=== PATIENT | female | born 1955 | race Caucasian/White ===

== ENCOUNTER 2024-08-01 13:22 | Emergency (ER) | payer MEDICARE ==
[2024-08-01 13:56] VITALS: TEMP 98
--- NOTE | 2024-08-01 14:28 | ED ---
General Adult HPI - General Chief complaint: Shortness of Breath Stated complaint: SOB Time Seen by Provider: 08/01/24 14:00 Source: patient, RN notes reviewed, old records reviewed Mode of arrival: wheelchair Limitations: no limitations - History of Present Illness Initial comments: Is a 69-year-old female who presents to the emergency department complaining of difficulty breathing. Patient states that started this morning. Patient states she is a heavy smoker and has been for years. Patient states she does have an inhaler at home but it was not working. Patient states she has had a little bit more of a cough and no sputum production. Patient denies any chest pain. Patient denies any pain anywhere. Patient denies any fever or chills. Patient states she only feels short of breath. Patient denies any leg swelling or calf tenderness. - Related Data Home Medications Medication Instructions Recorded Confirmed Aspirin EC [Ecotrin] 162 mg PO DAILY 11/11/13 01/18/15 Atenolol [Tenormin] 25 mg PO DAILY 11/11/13 01/18/15 Diltiazem Cd [Cardizem Cd] 120 mg PO DAILY 11/11/13 01/18/15 Hydrocodone/Acetaminophen [Custer 1 each PO Q4HR PRN 11/11/13 01/18/15 5-325] Lisinopril [Zestril] 40 mg PO DAILY 11/11/13 01/18/15 Previous Rx's Medication Instructions Recorded Amoxicillin 1,000 mg PO Q8H #42 capsule 01/18/15 Azithromycin [Zithromax Z-pack (6 250 mg PO DIRECTED #6 tab 01/18/15 tabs)] Allergies Allergy/AdvReac Type Severity Reaction Status Date / Time codeine Allergy Unknown Verified 01/18/15 02:26 egg Allergy Unknown Verified 01/18/15 02:26 Review of Systems ROS Statement: Those systems with pertinent positive or pertinent negative responses have been documented in the HPI. ROS Other: All systems not noted in ROS Statement are negative. Past Medical History Past Medical History: Asthma, Coronary Artery Disease (CAD) History of Any Multi-Drug Resistant Organisms: None Reported Past Surgical History: Section, Cholecystectomy, Tonsillectomy Additional Past Surgical History / Comment(s): ovary removed, right hernia Past Psychological History: No Psychological Hx Reported Past Alcohol Use History: Rare Past Drug Use History: None Reported General Exam - General Exam Comments Initial Comments: GENERAL: Patient is well-developed and well-nourished. Patient is nontoxic and well- hydrated and is in mild distress. ENT: Neck is soft and supple. No significant lymphadenopathy is noted. Oropharynx is clear. Moist mucous membranes. Neck has full range of motion without eliciting any pain. EYES: The sclera were anicteric and conjunctiva were pink and moist. Extraocular movements were intact and pupils were equal round and reactive to light. Eyelids were unremarkable. PULMONARY: Patient has significantly decreased breath sounds bilaterally CARDIOVASCULAR: There is a regular rate and rhythm without any murmurs gallops or rubs. ABDOMEN: Soft and nontender with normal bowel sounds. No palpable organomegaly was noted. There is no palpable pulsatile mass. SKIN: Skin is clear with no lesions or rashes and otherwise unremarkable. NEUROLOGIC: Patient is alert and oriented x3. Cranial nerves II through XII are grossly intact. Motor and sensory are also intact. Normal speech, volume and content. Symmetrical smile. MUSCULOSKELETAL: Normal extremities with adequate strength and full range of motion. No lower extremity swelling or edema. No calf tenderness. LYMPHATICS: No significant lymphadenopathy is noted PSYCHIATRIC: Normal psychiatric evaluation. Limitations: no limitations Course Vital Signs 08/01/24 08/01/24 08/01/24 13:54 14:45 15:00 Temperature 98 F Pulse Rate 88 101 H Respiratory 24 16 12 Rate Blood Pressure 139/88 198/108 170/91 O2 Sat by Pulse 90 L 93 L Oximetry 08/01/24 08/01/24 08/01/24 15:19 15:30 15:45 Temperature Pulse Rate 96 93 96 Respiratory 16 16 14 Rate Blood Pressure 148/82 130/80 119/81 O2 Sat by Pulse 2 L 99 98 Oximetry 08/01/24 15:52 Temperature Pulse Rate 97 Respiratory 16 Rate Blood Pressure 127/81 O2 Sat by Pulse 92 L Oximetry Medical Decision Making - Medical Decision Making EKG is interpreted by myself. EKG shows a sinus rhythm at 94 bpm HI 165 QRS is 84 QT interval 338 QTc is 390. Patient EKG shows occasional PVC Was pt. sent in by a medical professional or institution (, PA, SUPERVISING [employer], urgent care, hospital, or jail...) When possible be specific @ -No Did you speak to anyone other than the patient for history (EMS, parent, family, police, friend...)? What history was obtained from this source @ -No Did you review nursing and triage notes (agree or disagree)? Why? @ -I reviewed and agree with nursing and triage notes Were old charts reviewed (outside hosp., previous admission, EMS record, old EKG, old radiological studies, urgent care reports/EKG's, jail records)? Report findings @ -No old charts were reviewed Differential Diagnosis? @ -Differential Dyspnea: Coronary syndrome, arrhythmia, tamponade, asthma, COPD, pulmonary embolism, pneumonia, pneumothorax, pulmonary effusion, anaphylaxis, diabetic ketoacidosis, flailed chest, pulmonary contusion, diaphragmatic rupture, anemia, neuromuscular, this is not meant to be an all-inclusive list. EKG interpreted by me (3pts min.). @ -As above X-rays interpreted by me (1pt min.). @ -None done CT interpreted by me (1pt min.). @ -CT of the brain showed a large right-sided intraparenchymal bleed in the parietal region. CT angiogram shows no acute abnormality and no aneurysm. There is about a 50% occlusion of the right carotid artery U/S interpreted by me (1pt. min.). @ -None done What testing was considered but not performed or refused? (CT, X-rays, U/S, labs)? Why? @ -None What meds were considered but not given or refused? Why? @ -None Did you discuss the management of the patient with other professionals (professionals i.e. DrJohn, PA, [employer], lab, RT, psych nurse, social studies teacher, semiconductor wafer inspector, teacher, chief talent officer, block and case maker)? Give summary @ -I spoke with Dr. Andrews and he wanted the patient transferred to [facility]. Spoke with At [facility] Dr. Major and he agreed to accept the transfer the patient Was critical care preformed (if so, how long)? @ -35 minutes Were there social determinants of health that impacted care today? How? (Homelessness, low income, unemployed, alcoholism, drug addiction, transportation, low edu. Level, literacy, decrease access to med. care, fdc, rehab)? @ -No Was there de-escalation of care discussed even if they declined (Discuss DNR or withdrawal of care, Hospice)? DNR status @ -No What co-morbidities impacted this encounter? (DM, HTN, Smoking, COPD, CAD, Cancer, CVA, ARF, Chemo, Hep., AIDS, mental health diagnosis, sleep apnea, morbid obesity)? @ -None Was patient admitted / discharged? Hospital course, mention meds given and route, prescriptions, significant lab abnormalities, going to OR and other pertinent info. @ -Patient sees twice in the emergency department she was initially given 1 mg of Ativan and then that was followed up with [facility]. Patient was drowsy after the Ativan but arousable and was able to answer all questions. Undiagnosed new problem with uncertain prognosis? @ -No Drug Therapy requiring intensive monitoring for toxicity (Heparin, Nitro, Insulin, Cardizem)? @ -No Were any procedures done? @ -No Diagnosis/symptom? @ -Intraparenchymal hemorrhage Acute, or Chronic, or Acute on Chronic? @ -Acute Uncomplicated (without systemic symptoms) or Complicated (systemic symptoms)? @ -Complicate Side effects of treatment? @ -No Exacerbation, Progression, or Severe Exacerbation? @ -No Poses a threat to life or bodily function? How? (Chest pain, USA, OR, pneumonia, PE, COPD, DKA, ARF, appy, cholecystitis, CVA, Diverticulitis, Homicidal, Suicidal, threat to staff... and all critical care pts) @ -Yes this could lead to an further bleeding and Diagnosis/symptom? @ -Seizure Acute, or Chronic, or Acute on Chronic? @ -Acute Uncomplicated (without systemic symptoms) or Complicated (systemic symptoms)? @ -Complicated Side effects of treatment? @ -None Exacerbation, Progression, or Severe Exacerbation] @ -No Poses a threat to life or bodily function? @ -No - Lab Data Result diagrams: 08/01/24 14:51 08/01/24 14:51 Lab Results 08/01/24 08/01/24 08/01/24 Range/Units 14:51 14:51 14:51 WBC 10.37 H (4.50-10.00) 10*3/uL RBC 4.47 (4.10-5.20) 10*6/uL Hgb 13.6 (12.0-15.0) g/dL Hct 40.4 (37.2-46.3) % MCV 90.4 (80.0-97.0) fL MCH 30.4 (27.0-32.0) pg MCHC 33.7 (32.0-37.0) g/dL Plt Count 354 (140-440) 10*3/uL MPV 8.3 L (9.5-12.2) fL Immature Gran % (Auto) 0.5 % Neutrophils % 87.1 % Lymphocytes % 7.3 % Monocytes % 4.7 % Eosinophils % 0.0 % Basophils % 0.4 % Immature Gran # 0.05 H (0.00-0.04) 10*3/uL Neutrophils # 9.03 H (1.80-7.70) 10*3/uL Lymphocytes # 0.76 L (0.90-5.00) 10*3/uL Monocytes # 0.49 (0.20-1.00) 10*3/uL Eosinophils # 0.00 L (0.04-0.35) 10*3/uL Basophils # 0.04 (0.00-0.10) 10*3/uL PT (10.0-12.5) sec INR (<1.2) APTT (22.0-30.0) sec Sodium 135 L (137-145) mmol/L Potassium 4.0 (3.5-5.1) mmol/L Chloride 97 L (98-107) mmol/L Carbon Dioxide 30 (22-30) mmol/L Anion Gap 8 mmol/L BUN 23 H (7-17) mg/dL Creatinine 0.58 (0.52-1.04) mg/dL Est GFR (CKD-EPI)AfAm >90 (>60 ml/min/1.73 sqM) Est GFR (CKD-EPI)NonAf >90 (>60 ml/min/1.73 sqM) Glucose 111 H (74-99) mg/dL POC Glucose (mg/dL) (70-110) mg/dL POC Glu Electrical Experimental Mechanic ID Plasma Lactic Acid Dank 1.1 (0.7-2.0) mmol/L Calcium 8.9 (8.4-10.2) mg/dL Magnesium 1.7 (1.6-2.3) mg/dL Total Bilirubin 0.5 (0.2-1.3) mg/dL AST 29 (14-36) U/L ALT 28 (4-34) U/L Alkaline Phosphatase 53 (38-126) U/L Troponin I (0.000-0.034) ng/mL Total Protein 7.0 (6.3-8.2) g/dL Albumin 4.0 (3.5-5.0) g/dL 08/01/24 08/01/24 08/01/24 Range/Units 14:51 14:51 15:09 WBC (4.50-10.00) 10*3/uL RBC (4.10-5.20) 10*6/uL Hgb (12.0-15.0) g/dL Hct (37.2-46.3) % MCV (80.0-97.0) fL MCH (27.0-32.0) pg MCHC (32.0-37.0) g/dL Plt Count (140-440) 10*3/uL MPV (9.5-12.2) fL Immature Gran % (Auto) % Neutrophils % % Lymphocytes % % Monocytes % % Eosinophils % % Basophils % % Immature Gran # (0.00-0.04) 10*3/uL Neutrophils # (1.80-7.70) 10*3/uL Lymphocytes # (0.90-5.00) 10*3/uL Monocytes # (0.20-1.00) 10*3/uL Eosinophils # (0.04-0.35) 10*3/uL Basophils # (0.00-0.10) 10*3/uL PT 10.6 (10.0-12.5) sec INR 1.0 (<1.2) APTT 21.2 L (22.0-30.0) sec Sodium (137-145) mmol/L Potassium (3.5-5.1) mmol/L Chloride (98-107) mmol/L Carbon Dioxide (22-30) mmol/L Anion Gap mmol/L BUN (7-17) mg/dL Creatinine (0.52-1.04) mg/dL Est GFR (CKD-EPI)AfAm (>60 ml/min/1.73 sqM) Est GFR (CKD-EPI)NonAf (>60 ml/min/1.73 sqM) Glucose (74-99) mg/dL POC Glucose (mg/dL) 114 H (70-110) mg/dL POC Glu Electrical Experimental Mechanic ID Devin Braden Plasma Lactic Acid Dank (0.7-2.0) mmol/L Calcium (8.4-10.2) mg/dL Magnesium (1.6-2.3) mg/dL Total Bilirubin (0.2-1.3) mg/dL AST (14-36) U/L ALT (4-34) U/L Alkaline Phosphatase (38-126) U/L Troponin I 0.024 (0.000-0.034) ng/mL Total Protein (6.3-8.2) g/dL Albumin (3.5-5.0) g/dL Critical Care Time Critical Care Time: Yes Total Critical Care Time: 35 Disposition Clinical Impression: Seizure, Cerebral parenchymal hemorrhage Disposition: OTHER INSTITUTION NOT DEFINED Referrals: Nonstaff,Physician [Primary Care Provider] - 1-2 days - Out of Hospital Transfer - Req. Specs Out of Hospital Transfer - Requested Specifics: Other Emergency Center ([facility])
[2024-08-01 15:09] LABS: Basophils # (A) 0.04 10*3/uL (0.00-0.10); Basophils % (A) 0.4 %; HCT 40.4 % (37.2-46.3); HGB 13.6 g/dL (12.0-15.0); Lymphocytes # (A) 0.76 10*3/uL (0.90-5.00); Lymphocytes % (A) 7.3 %; MCH 30.4 pg (27.0-32.0); MCHC 33.7 g/dL (32.0-37.0); MCV 90.4 fL (80.0-97.0); Mean Platelet Volume 8.3 fL (9.5-12.2); Monocytes # (A) 0.49 10*3/uL (0.20-1.00); Monocytes % (A) 4.7 %; Neutrophils # (A) 9.03 10*3/uL (1.80-7.70); Neutrophils % (A) 87.1 %; Platelet Count 354 10*3/uL (140-440); RBC 4.47 10*6/uL (4.10-5.20); RDW 12.1 % (11.5-14.5); WBC 10.37 10*3/uL (4.50-10.00)
[2024-08-01] MEDS: LORazepam 1 MG/0.5 ML VIAL IV STA (15:10)
[2024-08-01 15:11] LABS: Glucose,Whole Blood 114 mg/dL (70-110)
[2024-08-01] MEDS: cefTRIAXone IN SWFI 1,000 MG/10 ML SYRINGE IVP STA (15:13)
[2024-08-01] MEDS: ALBUTEROL NEBULIZED 2.5 MG/3 ML INHALATION STA (15:14)
[2024-08-01] MEDS: methylPREDNISolone SOD SUCCI 125 MG/2 ML VIAL IV STA (15:14)
[2024-08-01] MEDS: IPRATROPIUM 0.5 MG/2.5 ML NEBU INHALATION STA (15:15)
[2024-08-01] MEDS: levETIRAcetam IV 500 MG/5 ML VIAL IVP STA (15:18)
--- NOTE | 2024-08-01 15:22 | CT ---
Head CT without contrast HISTORY: CVA. COMPARISON: None. TECHNIQUE: Multiple axial images are obtained from skull base to the vertex without the use of IV con trast material. FINDINGS: There is a 3.7 cm acute parenchymal hemorrhage in the right temporoparietal region with mild edema re sulting in slight shift of midline structures to the left. Ventricles, basal cisterns and sulci over convexities are within normal limits in size. The posterior fossa, brainstem, fourth ventricle and cerebellopontine angles appear normal. The intraorbital contents appear normal symmetric. Visualized paranasal sinuses and mastoid air cells are well aerated. IMPRESSION: Large acute parenchymal hemorrhage in the right temporoparietal region. Emergency room physician Dr. Lucero was immediately notified of this finding at the time of interpretat ion on 08/01/2024 at 3:20 PM [facility], Workstation: [facility], 08/01/2024 3:20 PM
[2024-08-01 15:25] LABS: Prothrombin Time 10.6 sec (10.0-12.5)
--- NOTE | 2024-08-01 15:30 | CT ---
EXAMINATION TYPE: CT angio head neck DATE OF EXAM: 08/01/2024 COMPARISON: None CLINICAL INDICATION: Female, 69 years old with history of Neuro deficit, acute, stroke suspected; [facility] , TECHNIQUE: CTA scan of the head and neck is performed , patient injected with mL of , axial images a re obtained, coronal and sagittal reformatted images are reviewed. 3D reconstructed images are create d on an independent workstation and reviewed. CT DLP: mGycm CT CTDI: mGy Automated exposure control for dose reduction was used. NASCET criteria was used in interpretation of this exam? FINDINGS: The brachiocephalic origins are widely patent and no significant stenosis. There is moderate calcification of the proximal right internal carotid artery resulting in less than 50% stenosis. There is no significant stenosis of the left common or internal carotid artery within t he neck. There is no stenosis of the vertebral arteries. Intracranially, there is no stenosis, segmental occlusion, sizable aneurysm sac or vascular malformat ion. IMPRESSION:. 1. Mild to moderate less than 50% stenosis of the proximal right internal carotid artery. No other ev idence of occlusive disease, aneurysm or vascular malformation in the neck or intracranially. 2. Acute intraparenchymal hemorrhage in the right temporoparietal region, see CT head of the same aung e. NASCET criteria was used in interpretation of this exam? [facility], Workstation: [facility] 08/01/2024 3:28 PM
[2024-08-01 15:31] LABS: Partial Thromboplastin Time 21.2 sec (22.0-30.0)
[2024-08-01] MEDS: CLEVIDIPINE BUTYRATE 25 MG in EMPTY BAG 1 BAG IV SCH (15:49)
[2024-08-01 15:54] VITALS: BP 127/81; PULSE 97; RESP 16
--- NOTE | 2024-08-01 15:55 | XR ---
EXAMINATION TYPE: XR chest 1V DATE OF EXAM: 08/01/2024 3:34 PM COMPARISON: Chest radiographs from 01/18/2015. CLINICAL INDICATION: Female, 69 years old with history of difficulty breathing; [facility] TECHNIQUE: XR chest 1V Frontal view of the chest. FINDINGS: Lungs/Pleura: There is no evidence of pleural effusion, focal consolidation, or pneumothorax. Pulmonary vascularity: Unremarkable. Heart/mediastinum: Cardiomediastinal silhouette is unremarkable. Musculoskeletal: No acute osseous pathology. Other findings: None IMPRESSION: No acute cardiopulmonary disease/process. [facility], , 08/01/2024 3:53 PM
[2024-08-01 16:07] LABS: ALT 28 U/L (4-34); African American GFR (CKD) >90 (>60 ml/min/1.73 sqM); Anion Gap 8 mmol/L; Blood Urea Nitrogen 23 mg/dL (7-17); Calcium 8.9 mg/dL (8.4-10.2); Carbon Dioxide 30 mmol/L (22-30); Chloride 97 mmol/L (98-107); Glucose 111 mg/dL (74-99); Non-African American GFR(CKD) >90 (>60 ml/min/1.73 sqM); Sodium 135 mmol/L (137-145); Total Bilirubin 0.5 mg/dL (0.2-1.3)
[2024-08-01 16:09] LABS: AST 29 U/L (14-36); Alkaline Phosphatase 53 U/L (38-126); Magnesium 1.7 mg/dL (1.6-2.3)
== END 2024-08-01 15:52 | disposition other institution (70) ==
LOC: EC 13:22
DX: I61.3 Nontraumatic intracerebral hemorrhage in brain stem (principal); Z88.5 Allergy status to narcotic agent; Z91.012 Allergy to eggs
CPT/HCPCS: 36415; 93005; 80053; 83605; 83735; 84484; 85025; 85610; 85730; 71045; 70496; 70450; 70498; 99291; 96374; 96375 ×2; J2060; J1953; C9248; Q9967

== ENCOUNTER 2024-09-12 19:13 | Emergency (ER) | payer MEDICARE ==
--- NOTE | 2024-09-12 20:19 | ED ---
Recheck HPI - General Chief Complaint: Recheck/Abnormal Lab/Rx Stated Complaint: Abn BP Time Seen by Provider: 09/12/24 19:30 Source: patient, RN notes reviewed Mode of arrival: wheelchair Limitations: physical limitation - History of Present Illness Initial Comments: This is a 69-year-old female with history including CAD, asthma and CVA (2 weeks ago) presenting for low blood pressure starting earlier today. Family [facility] patient is usually hypertensive, stating blood pressure was normal throughout most of the day until just prior to ER arrival. [facility] patient is more confused than usual as well. [facility] patient has ongoing left-sided deficits but denies any recent new paresthesia or hemiplegia. [facility] patient was discharged following CVA on 09/04/2024. Denies fever, chills, cough, chest pain, dyspnea, abdominal pain, N/V/D, dysuria. - Related Data Home Medications Medication Instructions Recorded Confirmed Aspirin EC [Ecotrin] 162 mg PO DAILY 11/11/13 01/18/15 Atenolol [Tenormin] 25 mg PO DAILY 11/11/13 01/18/15 Diltiazem Cd [Cardizem Cd] 120 mg PO DAILY 11/11/13 01/18/15 Hydrocodone/Acetaminophen [[place] 1 each PO Q4HR PRN 11/11/13 01/18/15 5-325] Lisinopril [Zestril] 40 mg PO DAILY 11/11/13 01/18/15 Previous Rx's Medication Instructions Recorded Amoxicillin 1,000 mg PO Q8H #42 capsule 01/18/15 Azithromycin [Zithromax Z-pack (6 250 mg PO DIRECTED #6 tab 01/18/15 tabs)] Allergies Allergy/AdvReac Type Severity Reaction Status Date / Time codeine Allergy Unknown Verified 09/12/24 20:01 egg Allergy Unknown Verified 09/12/24 20:01 Review of Systems ROS Statement: Those systems with pertinent positive or pertinent negative responses have been documented in the HPI. ROS Other: All systems not noted in ROS Statement are negative. Past Medical History Past Medical History: Asthma, Coronary Artery Disease (CAD) History of Any Multi-Drug Resistant Organisms: None Reported Past Surgical History: Section, Cholecystectomy, Tonsillectomy Additional Past Surgical History / Comment(s): ovary removed, right hernia Past Psychological History: No Psychological Hx Reported Past Alcohol Use History: Rare Past Drug Use History: None Reported General Exam Limitations: physical limitation General appearance: alert, in no apparent distress Head exam: Present: atraumatic, normocephalic, normal inspection Eye exam: Present: normal appearance, PERRL, EOMI. Absent: scleral icterus, conjunctival injection, periorbital swelling ENT exam: Present: normal exam, mucous membranes dry Neck exam: Present: normal inspection. Absent: tenderness, meningismus, lymphadenopathy Respiratory exam: Present: decreased breath sounds. Absent: respiratory distress, wheezes, rales, rhonchi, stridor, accessory muscle use, prolonged expiratory Cardiovascular Exam: Present: regular rate, normal rhythm, normal heart sounds. Absent: systolic murmur, diastolic murmur, rubs, gallop, clicks GI/Abdominal exam: Present: soft, normal bowel sounds. Absent: distended, tenderness, guarding, rebound, rigid Extremities exam: Present: normal inspection, full ROM, normal capillary refill. Absent: tenderness, pedal edema, joint swelling, calf tenderness Back exam: Present: normal inspection Neurological exam: Present: alert, oriented X3, CN II-XII intact Psychiatric exam: Present: normal affect, normal mood Skin exam: Present: warm, dry, intact, normal color. Absent: rash Course Vital Signs 09/12/24 09/13/24 09/13/24 19:57 00:01 01:53 Temperature 97.4 F L 98.3 F Pulse Rate 80 80 85 Respiratory 18 16 Rate Blood Pressure 95/65 101/73 121/86 O2 Sat by Pulse 96 96 97 Oximetry Medical Decision Making - Medical Decision Making Was pt. sent in by a medical professional or institution (, PA, ELECTRIC TRUCKER, urgent care, hospital, or senior living...) When possible be specific @ -[No] Did you speak to anyone other than the patient for history (EMS, parent, family, police, friend...)? What history was obtained from this source @ -[No] Did you review nursing and triage notes (agree or disagree)? Why? @ -[I reviewed and agree with nursing and triage notes] Were old charts reviewed (outside hosp., previous admission, EMS record, old EKG, old radiological studies, urgent care reports/EKG's, senior living records)? Report findings @ -[No old charts were reviewed] Differential Diagnosis (chest pain, altered mental status, abdominal pain women, abdominal pain men, vaginal bleeding, weakness, fever, dyspnea, syncope, headache, dizziness, GI bleed, back pain, seizure, CVA, palpatations, mental health, musculoskeletal)? @ -Differential Dizziness: Benign paroxysmal positional Vertigo, Meniere's disease, otitis media, acoustic neuroma, vertebrobasilar insufficiency, cerebellar stroke, encephalitis, hypovolemic, arrhythmia, coronary artery syndrome, anemia, this is not meant to be an all-inclusive list EKG interpreted by me (3pts min.). @ -Sinus rhythm without ST deviation when possible T wave inversion in leads III and aVF. Ventricular rate 75 bpm, SUSIE 185 ms, QRS 84 ms, QTc 388 ms. X-rays interpreted by me (1pt min.). @ -[None done] CT interpreted by me (1pt min.). @ -[None done] U/S interpreted by me (1pt. min.). @ -[None done] What testing was considered but not performed or refused? (CT, X-rays, U/S, labs)? Why? @ -[None] What meds were considered but not given or refused? Why? @ -[None] Did you discuss the management of the patient with other professionals (professionals i.e. , PA, ELECTRIC TRUCKER, lab, RT, psych nurse, social worker clinical, connection worker, teacher, production officer, case management director)? Give summary @ -[No] Was smoking cessation discussed for >3mins.? @ -[No] Was critical care preformed (if so, how long)? @ -[No] Were there social determinants of health that impacted care today? How? (Homelessness, low income, unemployed, alcoholism, drug addiction, transportation, low edu. Level, literacy, decrease access to med. care, snf, rehab)? @ -[No] Was there de-escalation of care discussed even if they declined (Discuss DNR or withdrawal of care, Hospice)? DNR status @ -[No] What co-morbidities impacted this encounter? (DM, HTN, Smoking, COPD, CAD, Cancer, CVA, ARF, Chemo, Hep., AIDS, mental health diagnosis, sleep apnea, morbid obesity)? @ -[None] Was patient admitted / discharged? Hospital course, mention meds given and route, prescriptions, significant lab abnormalities, going to OR and other pertinent info. @ -[hospital course] Undiagnosed new problem with uncertain prognosis? @ -[No] Drug Therapy requiring intensive monitoring for toxicity (Heparin, Nitro, Insulin, Cardizem)? @ -[No] Were any procedures done? @ -[No] Diagnosis/symptom? @ -[default] Acute, or Chronic, or Acute on Chronic? @ -Acute Uncomplicated (without systemic symptoms) or Complicated (systemic symptoms)? @ -Complicated Side effects of treatment? @ -[No] Exacerbation, Progression, or Severe Exacerbation? @ -[No] Poses a threat to life or bodily function? How? (Chest pain, [place], [place], pneumonia, PE, COPD, DKA, ARF, appy, cholecystitis, CVA, Diverticulitis, Homicidal, Suicidal, threat to staff... and all critical care pts) @ -[No] - Lab Data Result diagrams: 09/12/24 21:04 09/12/24 21:04 Lab Results 09/12/24 09/12/24 09/12/24 Range/Units 21:04 21:04 21:04 WBC 6.31 (4.50-10.00) 10*3/uL RBC 4.58 (4.10-5.20) 10*6/uL Hgb 14.2 (12.0-15.0) g/dL Hct 42.4 (37.2-46.3) % MCV 92.6 (80.0-97.0) fL MCH 31.0 (27.0-32.0) pg MCHC 33.5 (32.0-37.0) g/dL Plt Count 259 (140-440) 10*3/uL MPV 8.8 L (9.5-12.2) fL Immature Gran % (Auto) 0.6 % Neutrophils % 76.9 % Lymphocytes % 14.3 % Monocytes % 6.0 % Eosinophils % 1.7 % Basophils % 0.5 % Immature Gran # 0.04 (0.00-0.04) 10*3/uL Neutrophils # 4.85 (1.80-7.70) 10*3/uL Lymphocytes # 0.90 (0.90-5.00) 10*3/uL Monocytes # 0.38 (0.20-1.00) 10*3/uL Eosinophils # 0.11 (0.04-0.35) 10*3/uL Basophils # 0.03 (0.00-0.10) 10*3/uL PT (10.0-12.5) sec INR (<1.2) APTT (22.0-30.0) sec Sodium 138 (137-145) mmol/L Potassium 4.3 (3.5-5.1) mmol/L Chloride 102 (98-107) mmol/L Carbon Dioxide 27 (22-30) mmol/L Anion Gap 9 mmol/L BUN 33 H (7-17) mg/dL Creatinine 0.93 (0.52-1.04) mg/dL Est GFR (CKD-EPI)AfAm 73 (>60 ml/min/1.73 sqM) Est GFR (CKD-EPI)NonAf 63 (>60 ml/min/1.73 sqM) Glucose 102 H (74-99) mg/dL Plasma Lactic Acid Dank (0.7-2.0) mmol/L Calcium 10.5 H (8.4-10.2) mg/dL Magnesium 1.7 (1.6-2.3) mg/dL Total Bilirubin 0.5 (0.2-1.3) mg/dL AST 30 (14-36) U/L ALT 30 (4-34) U/L Alkaline Phosphatase 70 (38-126) U/L Troponin I (0.000-0.034) ng/mL Total Protein 6.9 (6.3-8.2) g/dL Albumin 4.6 (3.5-5.0) g/dL Urine Color Colorless Urine Appearance Clear (Clear) Urine pH 5.5 (5.0-8.0) Ur Specific [place] 1.014 (1.001-1.035) Urine Protein Negative (Negative) Urine Glucose (UA) Negative (Negative) Urine Ketones Negative (Negative) Urine Blood Negative (Negative) Urine Nitrite Negative (Negative) Urine Bilirubin Negative (Negative) Urine Urobilinogen <2.0 (<2.0) mg/dL Ur Leukocyte Esterase Small H (Negative) Urine RBC 1 (0-5) /hpf Urine WBC 7 H (0-5) /hpf Ur Squamous Epith Cells <1 (0-4) /hpf Urine Mucus Rare H (None) /hpf 09/12/24 09/12/24 09/12/24 Range/Units 21:04 21:04 21:06 WBC (4.50-10.00) 10*3/uL RBC (4.10-5.20) 10*6/uL Hgb (12.0-15.0) g/dL Hct (37.2-46.3) % MCV (80.0-97.0) fL MCH (27.0-32.0) pg MCHC (32.0-37.0) g/dL Plt Count (140-440) 10*3/uL MPV (9.5-12.2) fL Immature Gran % (Auto) % Neutrophils % % Lymphocytes % % Monocytes % % Eosinophils % % Basophils % % Immature Gran # (0.00-0.04) 10*3/uL Neutrophils # (1.80-7.70) 10*3/uL Lymphocytes # (0.90-5.00) 10*3/uL Monocytes # (0.20-1.00) 10*3/uL Eosinophils # (0.04-0.35) 10*3/uL Basophils # (0.00-0.10) 10*3/uL PT 10.1 (10.0-12.5) sec INR 0.9 (<1.2) APTT 21.5 L (22.0-30.0) sec Sodium (137-145) mmol/L Potassium (3.5-5.1) mmol/L Chloride (98-107) mmol/L Carbon Dioxide (22-30) mmol/L Anion Gap mmol/L BUN (7-17) mg/dL Creatinine (0.52-1.04) mg/dL Est GFR (CKD-EPI)AfAm (>60 ml/min/1.73 sqM) Est GFR (CKD-EPI)NonAf (>60 ml/min/1.73 sqM) Glucose (74-99) mg/dL Plasma Lactic Acid Dank 1.2 (0.7-2.0) mmol/L Calcium (8.4-10.2) mg/dL Magnesium (1.6-2.3) mg/dL Total Bilirubin (0.2-1.3) mg/dL AST (14-36) U/L ALT (4-34) U/L Alkaline Phosphatase (38-126) U/L Troponin I <0.012 (0.000-0.034) ng/mL Total Protein (6.3-8.2) g/dL Albumin (3.5-5.0) g/dL Urine Color Urine Appearance (Clear) Urine pH (5.0-8.0) Ur Specific [place] (1.001-1.035) Urine Protein (Negative) Urine Glucose (UA) (Negative) Urine Ketones (Negative) Urine Blood (Negative) Urine Nitrite (Negative) Urine Bilirubin (Negative) Urine Urobilinogen (<2.0) mg/dL Ur Leukocyte Esterase (Negative) Urine RBC (0-5) /hpf Urine WBC (0-5) /hpf Ur Squamous Epith Cells (0-4) /hpf Urine Mucus (None) /hpf Disposition Clinical Impression: Dehydration Condition: Fair Instructions (If sedation given, give patient instructions): Dehydration (ED) Additional Instructions: Increase intake of Gatorade/Pedialyte. Follow-up with primary care regarding abnormal finding within chest cavity. Return to ER if experiencing ongoing low blood pressure, dizziness, chest pain, dyspnea, fever, chills Is patient prescribed a controlled substance at d/c from ED?: No Referrals: Nonstaff,Physician [Primary Care Provider] - 1-2 days Flaquita Feliciano [STAFF PHYSICIAN] - 1-2 days Time of Disposition: 02:09
[2024-09-12 21:16] LABS: Basophils # (A) 0.03 10*3/uL (0.00-0.10); Basophils % (A) 0.5 %; Eosinophils # (A) 0.11 10*3/uL (0.04-0.35); Eosinophils % (A) 1.7 %; HCT 42.4 % (37.2-46.3); HGB 14.2 g/dL (12.0-15.0); Lymphocytes % (A) 14.3 %; MCHC 33.5 g/dL (32.0-37.0); MCV 92.6 fL (80.0-97.0); Mean Platelet Volume 8.8 fL (9.5-12.2); Monocytes # (A) 0.38 10*3/uL (0.20-1.00); Neutrophils # (A) 4.85 10*3/uL (1.80-7.70); Neutrophils % (A) 76.9 %; Platelet Count 259 10*3/uL (140-440); RBC 4.58 10*6/uL (4.10-5.20); RDW 13.6 % (11.5-14.5); WBC 6.31 10*3/uL (4.50-10.00)
--- NOTE | 2024-09-12 21:17 | XR ---
EXAMINATION TYPE: XR chest 2V DATE OF EXAM: 09/12/2024 9:04 PM CLINICAL INDICATION:Female, 69 years old with history of Chest Pain; [facility] COMPARISON: Chest radiographs from 08/01/2024, 01/18/2015. TECHNIQUE: XR chest 2V Frontal view of the chest. FINDINGS: Along the posterior aspect of the diaphragm there is a focal protruding radiodense focus which was no t seen on the 2015 x-ray in reference. Additionally along the anterior left heart border there is marisa e pleural thickening with possible calcifications seen. Finding may represent loculated small pleural fluid. The cardiac silhouette is otherwise within normal limits. There are some atelectatic changes in the right lower lung zone. No pneumothorax. No acute osseous abnormality. IMPRESSION: 1. Protruding focal radiodense focus along the posterior aspect of the diaphragm may relate to a Evelina dalek hernia however this was not present on the 2014 study in reference. This should be further tori acterize with a CT chest to rule out any other process such as a neoplasm. 2. Pleural thickening/small amount of loculated fluid is suggested in the anterior lower left lung zo ne. [facility], , 09/12/2024 9:15 PM
[2024-09-12 21:31] LABS: ALT 30 U/L (4-34); AST 30 U/L (14-36); African American GFR (CKD) 73 (>60 ml/min/1.73 sqM); Albumin 4.6 g/dL (3.5-5.0); Alkaline Phosphatase 70 U/L (38-126); Anion Gap 9 mmol/L; Appearance,Urine Clear (Clear); Bilirubin,Urine Negative (Negative); Blood Urea Nitrogen 33 mg/dL (7-17); Blood,Urine Negative (Negative); Calcium 10.5 mg/dL (8.4-10.2); Carbon Dioxide 27 mmol/L (22-30); Chloride 102 mmol/L (98-107); Color,Urine Colorless; Glucose 102 mg/dL (74-99); Glucose,Urine (UA) Negative (Negative); Ketones,Urine Negative (Negative); Leukocyte Esterase,Urine Small (Negative); Magnesium 1.7 mg/dL (1.6-2.3); Mucus,Urine Rare /hpf; Nitrite,Urine Negative (Negative); Non-African American GFR(CKD) 63 (>60 ml/min/1.73 sqM); PH, Urine 5.5 (5.0-8.0); Potassium 4.3 mmol/L (3.5-5.1); Protein,Urine Negative (Negative); RBC,Urine 1 /hpf (0-5); Sodium 138 mmol/L (137-145); Specific Gravity,Urine 1.014 (1.001-1.035); Squamous Epithelial Cell,Urine <1 /hpf (0-4); Total Bilirubin 0.5 mg/dL (0.2-1.3); Total Protein 6.9 g/dL (6.3-8.2); Urobilinogen,Urine <2.0 mg/dL (<2.0); WBC,Urine 7 /hpf (0-5)
[2024-09-12 21:36] LABS: INR 0.9 (<1.2); Prothrombin Time 10.1 sec (10.0-12.5)
[2024-09-12 21:43] LABS: Partial Thromboplastin Time 21.5 sec (22.0-30.0)
[2024-09-13] MEDS: SODIUM CHLORIDE 0.9% 1,000 ML IV STA (00:04)
[2024-09-13 01:55] VITALS: BP 121/86; PULSE 85; RESP 16; TEMP 98.3
== END 2024-09-13 02:23 ==
LOC: EC 19:13
DX: E86.0 Dehydration (principal); I25.10 Atherosclerotic heart disease of native coronary artery without angina pectoris; J45.909 Unspecified asthma, uncomplicated; Z88.5 Allergy status to narcotic agent; Z91.012 Allergy to eggs
CPT/HCPCS: 36415; 71046; 80053; 81001; 83605; 83735; 84484; 85025; 85610; 85730; 93005; 96360; 96361; 99284

== ENCOUNTER 2024-09-19 12:09 | Emergency (ER) | payer MEDICARE ==
[2024-09-19 12:15] VITALS: TEMP 97.8
--- NOTE | 2024-09-19 12:44 | ED ---
General Adult HPI - General Chief complaint: Recheck/Abnormal Lab/Rx Stated complaint: Abn Labs Time Seen by Provider: 09/19/24 12:15 Source: patient, RN notes reviewed, old records reviewed Mode of arrival: ambulatory Limitations: no limitations - History of Present Illness Initial comments: This is a 69-year-old female who presents to the emergency department because lately her blood pressure has been low. Patient states she had a stroke about 3 weeks ago with a little left-sided residual weakness. Patient states she has been having low blood pressure ever since. Patient denies any symptoms the patient denies lightheadedness or dizziness. Patient has chest pain or palpitations. Patient shortness of breath or difficulty breathing. Patient went to the primary medical care doctor who sent her into the emergency department today. Patient states she did take her blood pressure medications this morning. Patient is on 4 blood pressure medications - Related Data Home Medications Medication Instructions Recorded Confirmed Aspirin EC [Ecotrin] 162 mg PO DAILY 11/11/13 01/18/15 Atenolol [Tenormin] 25 mg PO DAILY 11/11/13 01/18/15 Diltiazem Cd [Cardizem Cd] 120 mg PO DAILY 11/11/13 01/18/15 Hydrocodone/Acetaminophen [[place] 1 each PO Q4HR PRN 11/11/13 01/18/15 5-325] Lisinopril [Zestril] 40 mg PO DAILY 11/11/13 01/18/15 Previous Rx's Medication Instructions Recorded Amoxicillin 1,000 mg PO Q8H #42 capsule 01/18/15 Azithromycin [Zithromax Z-pack (6 250 mg PO DIRECTED #6 tab 01/18/15 tabs)] Allergies Allergy/AdvReac Type Severity Reaction Status Date / Time codeine Allergy Unknown Verified 09/19/24 12:15 egg Allergy Unknown Verified 09/19/24 12:15 Review of Systems ROS Statement: Those systems with pertinent positive or pertinent negative responses have been documented in the HPI. ROS Other: All systems not noted in ROS Statement are negative. Past Medical History Past Medical History: Asthma, Coronary Artery Disease (CAD), Hypertension History of Any Multi-Drug Resistant Organisms: None Reported Past Surgical History: Section, Cholecystectomy, Tonsillectomy Additional Past Surgical History / Comment(s): ovary removed, right hernia Past Psychological History: No Psychological Hx Reported Smoking Status: Former smoker Past Alcohol Use History: Rare Past Drug Use History: None Reported General Exam - General Exam Comments Initial Comments: GENERAL: Patient is well-developed and well-nourished. Patient is nontoxic and well-hyd rated and is in no acute distress. ENT: Neck is soft and supple. No significant lymphadenopathy is noted. Oropharynx is clear. Moist mucous membranes. Neck has full range of motion without elicit ing any pain. EYES: The sclera were anicteric and conjunctiva were pink and moist. Extraocular m ovements were intact and pupils were equal round and reactive to light. Eyelids were unremarkable. PULMONARY: Unlabored respirations. Good breath sounds bilaterally. No audible rales rhonchi or wheezing was noted. CARDIOVASCULAR: There is a regular rate and rhythm without any murmurs gallops or rubs. ABDOMEN: Soft and nontender with normal bowel sounds. SKIN: Skin is clear with no lesions or rashes and otherwise unremarkable. NEUROLOGIC: Patient is alert and oriented x3. Cranial nerves II through XII are grossly intact. Motor and sensory are also intact. Normal speech, volume and content. Symmetrical smile. MUSCULOSKELETAL: Normal extremities with adequate strength and full range of motion. No lower extremity swelling or edema. No calf tenderness. LYMPHATICS: No significant lymphadenopathy is noted PSYCHIATRIC: Normal psychiatric evaluation. Limitations: no limitations Course Vital Signs 09/19/24 09/19/24 09/19/24 12:13 12:32 14:05 Temperature 97.8 F Pulse Rate 85 76 Pulse Rate [ 65 Pulse Oximetery ] Pulse Rate [ 70 Sitting Pulse Oximetery] Pulse Rate [ 73 Standing Pulse Oximetery] Respiratory 20 18 18 Rate Blood Pressure 89/66 106/72 Blood Pressure 114/78 [Right Arm Sitting] Blood Pressure 102/71 [Right Arm Standing] Blood Pressure 84/47 [Right Arm Supine] O2 Sat by Pulse 97 97 95 Oximetry Medical Decision Making - Medical Decision Making EKG is interpreted by myself. EKG shows sinus rhythm with an occasional PVC at 82 bpm DC interval is 192 QRS is 89 QT interval is 352 QTc is 390. Patient's EKG shows no ST segment elevation or depression. Was pt. sent in by a medical professional or institution (, PA, FILER FINISH, urgent care, hospital, or [place] [facility] [place]...) When possible be specific @ -No Did you speak to anyone other than the patient for history (EMS, parent, family, police, friend...)? What history was obtained from this source @ -No Did you review nursing and triage notes (agree or disagree)? Why? @ -I reviewed and agree with nursing and triage notes Were old charts reviewed (outside hosp., previous admission, EMS record, old EKG, old radiological studies, urgent care reports/EKG's, [place] [facility] [place] records)? Report findings @ -No old charts were reviewed Differential Diagnosis? @ -Hypotension, dehydration, overmedicated, this is not all-inclusive list EKG interpreted by me (3pts min.). @ -As above X-rays interpreted by me (1pt min.). @ -None done CT interpreted by me (1pt min.). @ -None done U/S interpreted by me (1pt. min.). @ -None done What testing was considered but not performed or refused? (CT, X-rays, U/S, labs)? Why? @ -None What meds were considered but not given or refused? Why? @ -None Did you discuss the management of the patient with other professionals (professionals i.e. , PA, FILER FINISH, lab, RT, psych nurse, social services director, mobile development manager, teacher, artillery officer, rehabilitation caseworker)? Give summary @ -No Was smoking cessation discussed for >3mins.? @ -No Was critical care preformed (if so, how long)? @ -No Were there social determinants of health that impacted care today? How? (Homelessness, low income, unemployed, alcoholism, drug addiction, transportation, low edu. Level, literacy, decrease access to med. care, [facility], rehab)? @ -No Was there de-escalation of care discussed even if they declined (Discuss DNR or withdrawal of care, Hospice)? DNR status @ -No What co-morbidities impacted this encounter? (DM, HTN, Smoking, COPD, CAD, Cancer, CVA, ARF, Chemo, Hep., AIDS, mental health diagnosis, sleep apnea, morbid obesity)? @ -None Was patient admitted / discharged? Hospital course, mention meds given and route, prescriptions, significant lab abnormalities, going to OR and other pertinent info. @ -Patient was asymptomatic throughout her ED course. Patient's blood pressure on standing and walking was normal. Patient was instructed to decrease her atenolol by half a pill every day and see if this helps if that does not help she is told in a couple days to take half of the lisinopril as well and to follow-up with cardiology or primary medical care doctor Undiagnosed new problem with uncertain prognosis? @ -No Drug Therapy requiring intensive monitoring for toxicity (Heparin, Nitro, Insulin, Cardizem)? @ -No Were any procedures done? @ -No Diagnosis/symptom? @ -Hypotension Acute, or Chronic, or Acute on Chronic? @ -Acute Uncomplicated (without systemic symptoms) or Complicated (systemic symptoms)? @ -Complicated Side effects of treatment? @ -No Exacerbation, Progression, or Severe Exacerbation? @ -No Poses a threat to life or bodily function? How? (Chest pain, [place], [place], pneumonia, PE, COPD, DKA, ARF, appy, cholecystitis, CVA, Diverticulitis, Homicidal, Suicidal, threat to staff... and all critical care pts) @ -No - Lab Data Result diagrams: 09/19/24 12:57 09/19/24 12:57 Lab Results 09/19/24 09/19/24 Range/Units 12:57 12:57 WBC 5.90 (4.50-10.00) 10*3/uL RBC 4.56 (4.10-5.20) 10*6/uL Hgb 14.4 (12.0-15.0) g/dL Hct 42.0 (37.2-46.3) % MCV 92.1 (80.0-97.0) fL MCH 31.6 (27.0-32.0) pg MCHC 34.3 (32.0-37.0) g/dL Plt Count 249 (140-440) 10*3/uL MPV 8.5 L (9.5-12.2) fL Immature Gran % (Auto) 0.3 % Neutrophils % 72.9 % Lymphocytes % 19.5 % Monocytes % 6.3 % Eosinophils % 0.7 % Basophils % 0.3 % Immature Gran # 0.02 (0.00-0.04) 10*3/uL Neutrophils # 4.30 (1.80-7.70) 10*3/uL Lymphocytes # 1.15 (0.90-5.00) 10*3/uL Monocytes # 0.37 (0.20-1.00) 10*3/uL Eosinophils # 0.04 (0.04-0.35) 10*3/uL Basophils # 0.02 (0.00-0.10) 10*3/uL Sodium 139 (137-145) mmol/L Potassium 4.8 (3.5-5.1) mmol/L Chloride 99 (98-107) mmol/L Carbon Dioxide 27 (22-30) mmol/L Anion Gap 13 mmol/L BUN 27 H (7-17) mg/dL Creatinine 1.15 H (0.52-1.04) mg/dL Est GFR (CKD-EPI)AfAm 56 (>60 ml/min/1.73 sqM) Est GFR (CKD-EPI)NonAf 48 (>60 ml/min/1.73 sqM) Glucose 86 (74-99) mg/dL Calcium 10.4 H (8.4-10.2) mg/dL Magnesium 1.9 (1.6-2.3) mg/dL Total Bilirubin 0.6 (0.2-1.3) mg/dL AST 30 (14-36) U/L ALT 30 (4-34) U/L Alkaline Phosphatase 76 (38-126) U/L Total Protein 7.0 (6.3-8.2) g/dL Albumin 4.6 (3.5-5.0) g/dL Disposition Clinical Impression: Hypotension Disposition: HOME SELF-CARE Condition: Good Additional Instructions: Patient should cut her atenolol in half and start taking her blood pressure 4 times a day. Patient should then cut her lisinopril in half if cutting the atenolol not give her a systolic blood pressure of over 110 Is patient prescribed a controlled substance at d/c from ED?: No Referrals: Nonstaff,Physician [Primary Care Provider] - 1-2 days Time of Disposition: 14:24
[2024-09-19 12:57] VITALS: RESP 18
[2024-09-19] MEDS: SODIUM CHLORIDE 0.9% 1,000 ML IV ONE (12:59)
[2024-09-19 13:06] LABS: Basophils # (A) 0.02 10*3/uL (0.00-0.10); Basophils % (A) 0.3 %; Eosinophils # (A) 0.04 10*3/uL (0.04-0.35); Eosinophils % (A) 0.7 %; HCT 42.0 % (37.2-46.3); HGB 14.4 g/dL (12.0-15.0); Lymphocytes # (A) 1.15 10*3/uL (0.90-5.00); Lymphocytes % (A) 19.5 %; MCH 31.6 pg (27.0-32.0); MCHC 34.3 g/dL (32.0-37.0); MCV 92.1 fL (80.0-97.0); Monocytes # (A) 0.37 10*3/uL (0.20-1.00); Monocytes % (A) 6.3 %; Neutrophils # (A) 4.30 10*3/uL (1.80-7.70); Neutrophils % (A) 72.9 %; Platelet Count 249 10*3/uL (140-440); RBC 4.56 10*6/uL (4.10-5.20); RDW 13.3 % (11.5-14.5); WBC 5.90 10*3/uL (4.50-10.00)
[2024-09-19 13:18] LABS: ALT 30 U/L (4-34); AST 30 U/L (14-36); African American GFR (CKD) 56 (>60 ml/min/1.73 sqM); Albumin 4.6 g/dL (3.5-5.0); Alkaline Phosphatase 76 U/L (38-126); Anion Gap 13 mmol/L; Blood Urea Nitrogen 27 mg/dL (7-17); Calcium 10.4 mg/dL (8.4-10.2); Carbon Dioxide 27 mmol/L (22-30); Chloride 99 mmol/L (98-107); Glucose 86 mg/dL (74-99); Magnesium 1.9 mg/dL (1.6-2.3); Non-African American GFR(CKD) 48 (>60 ml/min/1.73 sqM); Potassium 4.8 mmol/L (3.5-5.1); Sodium 139 mmol/L (137-145); Total Protein 7.0 g/dL (6.3-8.2)
[2024-09-19 15:12] VITALS: BP 133/68; PULSE 75
== END 2024-09-19 15:09 | disposition home or self-care (01) ==
LOC: EC 12:09
DX: Z87.891 Personal history of nicotine dependence (principal); Z88.5 Allergy status to narcotic agent; Z91.012 Allergy to eggs
CPT/HCPCS: 36415; 80053; 83735; 85025; 93005; 96360; 99285